=== PATIENT | male | born 1960 | race African-American/Black ===

== ENCOUNTER → 2016-10-02 | Outpatient (REF) | payer OTHER ==
[~2016-10-02] MED LIST: ALLO100T PO; AMLO10TA2 PO; CIPR-250 PO; CIPR500T89 PO; DITR1TAB PO; DOXA1TAB49 PO; EXTR500C4 PO; GABA600T PO; HYDR25TAB PO; IBUP200C PO; K-TA10TA2 PO; LOSA100T36 PO; NORC5TAB PO; PERC5TAB6 PO; PRAV20TA2 PO; VITA50003 PO; tylenol
[2016-10-02 14:08] LABS: PERCENT SATURATION 23.5 % (19.7-37.4)
== END ==
LOC: M LAB REF 13:14
PROVIDERS: ATTEND Internal Medicine Nephrology
DX: D64.9 Anemia, unspecified (principal)

== ENCOUNTER → 2018-04-15 | Outpatient (REF) | payer OTHER ==
[2018-04-18 13:29] LABS: FERRITIN 256 NG/ML (26-388); IRON (FE) 37 UG/DL (65-175); PERCENT SATURATION 13.3 % (19.7-50.0); TOTAL IRON BINDING CAPACITY 279 UG/DL (250-450)
== END ==
LOC: M LAB REF 12:54
DX: N18.3 Chronic kidney disease, stage 3 (moderate) (principal); D63.1 Anemia in chronic kidney disease
CPT/HCPCS: 83550

== ENCOUNTER → 2019-09-27 | Outpatient (REF) | payer OTHER ==
[~2019-09-27] MED LIST changes: -AMLO10TA2 PO; +AMLO10TA5 PO; +CIPR-249 PO; -CIPR500T89 PO; -GABA600T PO; +GABA600T4 PO; +HYDR-2541 PO; -HYDR25TAB PO; -IBUP200C PO; +IBUP200C25 PO; -LOSA100T36 PO; +LOSA100T50 PO; +NORC1TAB7 PO; -NORC5TAB PO; +PERC5TAB12 PO; -PERC5TAB6 PO; -VITA50003 PO; +VITA50005 PO
[2019-09-27 14:09] LABS: ALBUMIN 3.4 GM/DL (3.2-5.2); CALCIUM LEVEL 8.7 MG/DL (8.5-10.1); CREATININE FOR GFR 1.64 MG/DL (0.70-1.30); GLOMERULAR FILTRATION RATE 56.1 (>56); PHOSPHORUS LEVEL 2.8 MG/DL (2.5-4.9)
== END ==
LOC: M LAB REF 13:02
PROVIDERS: ATTEND Nurse Practitioner Family
DX: N18.3 Chronic kidney disease, stage 3 (moderate) (principal)

== ENCOUNTER → 2020-06-13 | Outpatient (CLI) | payer OTHER ==
[~2020-06-13] MED LIST changes: -AMLO10TA5 PO; +AMLO1TAB25 PO
--- NOTE | 2020-06-20 08:16 | REP ---
RENAL ULTRASOUND CLINICAL: History of chronic renal disease and hypertension. TECHNIQUE: Transabdominal ultrasound with color Doppler evaluation of the renal arteries. FINDINGS: The bilateral kidneys are essentially normal in contour, size, echogenicity, and reniform shape without hydronephrosis, nephrolithiasis, cystic, or renal mass lesion. Right kidney measures 9.6 x 4.9 x 3.4 cm. Left kidney measures 9.5 x 3.9 x 5.4 cm. The bladder is underdistended and grossly normal. Doppler interrogation of the bilateral renal arteries demonstrates normal velocities, resistive indices, and acceleration times without evidence for renal arterial stenosis. RIGHT KIDNEY: Peak arterial velocity 118 cm/s Renal aortic ratio 1.60 Resistive indices 0.60-0.76 Acceleration times 0.030-0.042. LEFT KIDNEY: Peak renal artery velocity 77 cm/s Renal aortic ratio 1.0 Resistive indices 0.68-0.77 Acceleration times 0.022-0.044 IMPRESSION: Normal renal ultrasound with normal Doppler interrogation. No evidence for renal arterial stenosis. MTDD
== END ==
LOC: M RAD 09:00
PROVIDERS: ATTEND Nurse Practitioner Family
DX: I12.9 Hypertensive chronic kidney disease with stage 1 through stage 4 chronic kidney disease, or unspecified chronic kidney disease (principal); N18.3 Chronic kidney disease, stage 3 (moderate)

== ENCOUNTER → 2024-09-28 | Outpatient (REF) | payer OTHER ==
[~2024-09-28] MED LIST changes: +GABA-1490 PO; -GABA600T4 PO; -K-TA10TA2 PO; +LOSA100T46 PO; -LOSA100T50 PO; +POTA-165 PO
== END ==
LOC: M LAB REF 17:24
PROVIDERS: ATTEND Nurse Practitioner Family
DX: Z79.899 Other long term (current) drug therapy (principal)

== ENCOUNTER → 2025-05-03 | Outpatient (REF) | payer OTHER ==
[~2025-05-03] MED LIST changes: -PRAV20TA2 PO; +PRAV20TA78 PO
[2025-05-10 03:06] LABS: UR HYDROCODONE 373 ng/mL (.); UR HYDROMORPHONE 34 ng/mL (.)
== END ==
LOC: M LAB REF 16:55
PROVIDERS: ATTEND Nurse Practitioner Family
DX: Z79.899 Other long term (current) drug therapy (principal)